=== PATIENT | male | born 1955 | race Caucasian/White ===

== ENCOUNTER 2021-08-07 10:57 | Emergency (ER) | payer MEDICARE, OTHER ==
[~2021-08-07] VITALS: Ht 180.3 cm; Wt 74.8 kg
[2021-08-07] MEDS ORDERED: CASIRIVIMAB/IMDEVIMAB 10 ML in SODIUM CHLORIDE 0.9% 100 ML IV ONE (11:15)
== END 2021-08-07 12:17 | disposition home or self-care (01) ==
LOC: ER 11:07
DX: U07.1 COVID-19 (principal); E78.5 Hyperlipidemia, unspecified
CPT/HCPCS: 99282; J7050

== ENCOUNTER 2025-03-26 23:14 | Emergency (ER) | payer MEDICARE, OTHER ==
[~2025-03-26] VITALS: Ht 180.3 cm; Wt 74.8 kg
[2025-03-26 23:20] VITALS: PULSE 72; RESP 20; TEMP 98
[2025-03-27] MEDS ORDERED: HYDROCODON-ACE1 EA11 PO (02:10)
[2025-03-27] MEDS: HYDROCODONE/APAP 10MG-325MG TAB PO STA (02:42)
[2025-03-27] MEDS: KETOROLAC TROMETHAMINE 60 MG/2 ML VIAL IM STA (02:43)
[2025-03-27 04:28] VITALS: BP 140/79; O2SAT 99
== END 2025-03-27 04:30 | disposition home or self-care (01) ==
LOC: ER 23:19
DX: M25.551 Pain in right hip (principal); M54.50 Low back pain, unspecified; G89.29 Other chronic pain; W01.0XXD Fall on same level from slipping, tripping and stumbling without subsequent striking against object, subsequent encounter; E78.5 Hyperlipidemia, unspecified
CPT/HCPCS: 72131; 99284